=== PATIENT | female | born 1970 | race American Indian/Alaskan Native ===

== ENCOUNTER 2017-10-16 14:49 | Emergency (ER) | payer OTHER ==
[~2017-10-16] VITALS: Ht 170.2 cm; Wt 61.2 kg
[~2017-10-16 14:49] MED LIST: DIPH50 PO; EPIN.3I IM; HYDHCL25 PO; Hydrochloroth12.5 MG PO; METPRE4DP PO; Pepcid40 MG PO
[2017-10-16] MEDS ORDERED: EPIPEN 2-P0.3 MG/0.3 IM (15:49)
[2017-10-16] MEDS ORDERED: CLARITIN10 MG PO (15:49)
[2017-10-16] MEDS ORDERED: Prednisone20 MG PO (15:49)
[2017-10-16] MEDS ORDERED: Pepcid40 MG PO (15:49)
== END 2017-10-16 15:59 | disposition home or self-care (01) ==
LOC: ER 14:49
DX: T63.441A Toxic effect of venom of bees, accidental (unintentional), initial encounter (principal); Z91.030 Bee allergy status; Z91.040 Latex allergy status; Z91.010 Allergy to peanuts; Z79.899 Other long term (current) drug therapy
CPT/HCPCS: 94640; 96374; 99283; J3490

== ENCOUNTER 2020-09-07 13:59 | Emergency (ER) | payer OTHER, BC ==
[~2020-09-07] VITALS: Ht 172.7 cm; Wt 74.8 kg
[~2020-09-07 13:59] MED LIST changes: +CLARITIN10 MG PO; +EPIPEN 2-P0.3 MG/0.3 IM; +HYDCHL25 PO; +KETO10 PO; +PRINIVIL10 MG PO; +Prednisone20 MG PO; +Symbicort 80-10.2 GM INH; +THYR60 PO; +Ventolin/Prove6.7 GM INH
[2020-09-07 14:40] LABS: BASOPHILS ABSOLUTE AUTO 0.05 K/mm3 (0.00-0.23); BASOPHILS PERCENT AUTO 1 % (0-2); EOSINOPHILS ABSOLUTE AUTO 0.07 K/mm3 (0.00-0.68); EOSINOPHILS PERCENT AUTO 1 % (0-6); Hematocrit 40.4 % (33.0-51.0); IMMATURE GRAN ABSOLUTE AUTO 0.02 K/mm3 (0.00-0.10); IMMATURE GRAN PERCENT AUTO 0 % (0-1); LYMPHOCYTES PERCENT AUTO 47 % (21-46); MONOCYTES ABSOLUTE AUTO 0.44 K/mm3 (0.16-1.47); MONOCYTES PERCENT AUTO 6 % (4-13); Mean Corpuscular HGB 29.4 pg (26.0-34.0); Mean Corpuscular HGB Conc 34.7 g/dL (31.5-36.5); Mean Corpuscular Volume 85 fL (80-100); Mean Platelet Volume 11.1 fL (9.1-12.4); NEUTROPHILS ABSOLUTE AUTO 3.52 K/mm3 (1.96-9.15); NEUTROPHILS PERCENT AUTO 46 % (41-73); Platelet Count 222 K/mm3 (150-400); RDW Coefficient Variation 12.6 % (11.7-14.2); RDW Standard Deviation 38.9 fL (35.1-46.3); Red Blood Cell Count 4.77 M/mm3 (3.80-5.20)
[2020-09-07 15:02] LABS: Alanine Aminotransfer (ALT/SGP 38 U/L (12-78); Alk Phos 72 U/L (50-136); Anion Gap 6 mmol/L (6-16); Aspartate Aminotrans (AST/SGOT 20 U/L (12-37); Bilirubin, Total 0.4 mg/dL (0.1-1.0); Blood Urea Nitrogen 14 mg/dL (8-24); Bun/Creatinine Ratio 18.4 (12.0-20.0); CO2, Blood 28 mmol/L (21-32); Calcium, Blood 9.2 mg/dL (8.5-10.1); Chloride, Blood 100 mmol/L (98-108); Creatinine, Blood 0.76 mg/dL (0.40-1.00); Globulin, Blood 4.1 g/dL (2.2-4.0); Glomerular Filtration Rate >60 (60-); Glucose, Blood 103 mg/dL (70-99); Sodium, Blood 134 mmol/L (136-145); Total Protein, Blood 8.1 g/dL (6.4-8.2); Troponin I <0.015 ng/mL (0.000-0.040)
[2020-09-07] MEDS ORDERED: CHLO25B PO (15:53)
[2020-09-07] MEDS ORDERED: AMLODIPINE BESYL5 MG PO (15:54)
[2020-09-07] MEDS ORDERED: ASPI81CH PO (15:54)
[2020-09-07] MEDS ORDERED: MOTION RELIEF25 MG PO (18:03)
== END 2020-09-07 18:20 | disposition home or self-care (01) ==
LOC: ER 13:59
PROVIDERS: Physician Assistant
DX: R07.9 Chest pain, unspecified (principal); E87.6 Hypokalemia; R42 Dizziness and giddiness; R11.0 Nausea; I10 Essential (primary) hypertension; F17.210 Nicotine dependence, cigarettes, uncomplicated; Z91.030 Bee allergy status; Z91.040 Latex allergy status; Z91.010 Allergy to peanuts
CPT/HCPCS: 36415; 71046; 80053; 83735; 84484; 85025; 93005; 93010; 99285-25; A9270

== ENCOUNTER 2022-10-21 07:31 | Emergency (ER) | payer OTHER, BC ==
[~2022-10-21] VITALS: Ht 175.3 cm; Wt 72.6 kg
[~2022-10-21 07:31] MED LIST changes: +AMLODIPINE BESYL5 MG PO; +AMOCLA875 PO; +ASPI81CH PO; +CHLO25B PO; +HYDR1TAB94 PO; +METO25ER; +MOTION RELIEF25 MG PO; +ONDA4ODT MM
[2022-10-21 09:35] LABS: Source, Urine Clean Catch
[2022-10-21 09:43] LABS: Appearance, Urine Clear (Clear); Bilirubin, Urine Neg (Neg); Blood, Urine Neg (Neg); Color, Urine Yellow (P-Yellow); Glucose Qualitative, Urine Neg (Neg); Ketones, Urine Neg (Neg); Leukocyte Esterase, Urine Neg (Neg); Nitrite, Urine Neg (Neg); Protein, Urine Neg (Neg); Specific Gravity, Urine 1.015 (1.003-1.022); Urobilinogen, Urine NORM (Normal)
[2022-10-21 10:00] LABS: BASOPHILS ABSOLUTE AUTO 0.04 K/mm3 (0.00-0.23); BASOPHILS PERCENT AUTO 1 % (0-2); EOSINOPHILS ABSOLUTE AUTO 0.06 K/mm3 (0.00-0.68); EOSINOPHILS PERCENT AUTO 1 % (0-6); Hematocrit 41.8 % (33.0-51.0); Hemoglobin 14.5 g/dL (11.5-16.0); IMMATURE GRAN ABSOLUTE AUTO 0.02 K/mm3 (0.00-0.10); IMMATURE GRAN PERCENT AUTO 0 % (0-1); LYMPHOCYTES ABSOLUTE AUTO 2.48 K/mm3 (0.84-5.20); LYMPHOCYTES PERCENT AUTO 40 % (21-46); MONOCYTES ABSOLUTE AUTO 0.35 K/mm3 (0.16-1.47); MONOCYTES PERCENT AUTO 6 % (4-13); Mean Corpuscular HGB 29.4 pg (26.0-34.0); Mean Corpuscular HGB Conc 34.7 g/dL (31.5-36.5); Mean Corpuscular Volume 85 fL (80-100); Mean Platelet Volume 11.1 fL (9.1-12.4); NEUTROPHILS PERCENT AUTO 53 % (41-73); Platelet Count 226 K/mm3 (150-400); RDW Coefficient Variation 12.9 % (11.7-14.2); RDW Standard Deviation 39.9 fL (35.1-46.3); Red Blood Cell Count 4.93 M/mm3 (3.80-5.20); White Blood Cell Count 6.25 K/mm3 (4.00-11.30)
[2022-10-21 11:39] LABS: Albumin, Blood 3.7 g/dL (3.4-5.0); Albumin/Globulin Ratio 0.9 (0.8-1.8); Bilirubin, Total 0.4 mg/dL (0.1-1.0); Bun/Creatinine Ratio 13.8 (12.0-20.0); Calcium, Blood 9.4 mg/dL (8.5-10.1); Creatinine, Blood 0.87 mg/dL (0.40-1.00); Potassium, Blood 3.8 mmol/L (3.5-5.5); Total Protein, Blood 7.7 g/dL (6.4-8.2)
[2022-10-21] MEDS ORDERED: CYCL10 PO (11:42)
[2022-10-21 12:21] VITALS: BP 156/108
== END 2022-10-21 12:22 | disposition home or self-care (01) ==
LOC: ER 07:31
PROVIDERS: Student in an Organized Health Care Education/Training Program
DX: G89.29 Other chronic pain (principal); M75.00 Adhesive capsulitis of unspecified shoulder; M54.6 Pain in thoracic spine; M62.838 Other muscle spasm; I10 Essential (primary) hypertension; Z88.8 Allergy status to other drugs, medicaments and biological substances; Z91.030 Bee allergy status; Z91.040 Latex allergy status; Z91.010 Allergy to peanuts; Z79.82 Long term (current) use of aspirin; Z79.899 Other long term (current) drug therapy; Z87.891 Personal history of nicotine dependence; W19.XXXA Unspecified fall, initial encounter
CPT/HCPCS: 76705; 80053; 81003; 81025; 83690; 85025; 93005; 93010; 99284-25; A9270

== ENCOUNTER → 2024-06-22 | Outpatient (CLI) | payer BC ==
[~2024-06-22] MED LIST changes: +CYCL10 PO
[2024-06-23 10:28] LABS: Bacterial Vaginosis PCR Negative (NEGATIVE); Candida Group, PCR NOT DETECTED (NOT DETECT); Candida glabrata-krusei, PCR NOT DETECTED (NOT DETECT)
== END ==
LOC: LAB 17:22 → LAB SHORT 17:22
PROVIDERS: Family Medicine
DX: R10.2 Pelvic and perineal pain (principal)
CPT/HCPCS: 81515

== ENCOUNTER → 2024-07-21 | Outpatient (CLI) | payer BC ==
[2024-07-21 10:12] LABS: BASOPHILS ABSOLUTE AUTO 0.05 K/mm3 (0.00-0.23); BASOPHILS PERCENT AUTO 1 % (0-2); EOSINOPHILS ABSOLUTE AUTO 0.08 K/mm3 (0.00-0.68); EOSINOPHILS PERCENT AUTO 1 % (0-6); IMMATURE GRAN ABSOLUTE AUTO 0.01 K/mm3 (0.00-0.10); IMMATURE GRAN PERCENT AUTO 0 % (0-1); LYMPHOCYTES PERCENT AUTO 45 % (21-46); MONOCYTES ABSOLUTE AUTO 0.37 K/mm3 (0.16-1.47); MONOCYTES PERCENT AUTO 6 % (4-13); Mean Corpuscular HGB 28.6 pg (26.0-34.0); Mean Corpuscular HGB Conc 33.3 g/dL (31.5-36.5); Mean Corpuscular Volume 86 fL (80-100); Mean Platelet Volume 10.6 fL (9.1-12.4); NEUTROPHILS ABSOLUTE AUTO 2.82 K/mm3 (1.96-9.15); NEUTROPHILS PERCENT AUTO 47 % (41-73); Platelet Count 205 K/mm3 (150-400); RDW Coefficient Variation 13.2 % (11.7-14.2); RDW Standard Deviation 40.9 fL (35.1-46.3); White Blood Cell Count 6.03 K/mm3 (4.00-11.30)
[2024-07-21 10:22] LABS: Albumin, Blood 3.9 g/dL (3.4-5.0); Bilirubin, Total 0.5 mg/dL (0.1-1.0); Bun/Creatinine Ratio 15.9 (12.0-20.0); Calcium, Blood 9.4 mg/dL (8.5-10.1); Creatinine, Blood 0.88 mg/dL (0.40-1.00); Globulin, Blood 3.8 g/dL (2.2-4.0); Magnesium, Blood 1.9 mg/dL (1.6-2.4); Potassium, Blood 4.1 mmol/L (3.5-5.5); Total Protein, Blood 7.7 g/dL (6.4-8.2)
== END ==
LOC: LAB SHORT 10:07 → LAB 10:07
PROVIDERS: Chiropractor
DX: R55 Syncope and collapse (principal)
CPT/HCPCS: 80053; 83735; 85025